=== PATIENT | male | born 1955 ===

== ENCOUNTER 2022-08-01 09:56 | Emergency (ER) | payer BC ==
[2022-08-01] MEDS: Morphine 2 MG/ML SYRINGE IVPUSH PRN (10:36)
[2022-08-01] MEDS: Ondansetron 4 MG/2 ML SDV IVPUSH ONE (10:37)
[2022-08-01] MEDS: Sodium Chloride 0.9% 1,000 ML IV ONE (10:41)
[2022-08-01 12:30] LABS: CHLORIDE,CL 104 mmol/L (98-107); SODIUM,NA 139 mmol/L (136-145)
[2022-08-01 12:31] LABS: ANION GAP 11.2 mmol/L (5-15); ESTIMATED GFR 66 mL/min (>=60)
== END 2022-08-01 14:15 | disposition home or self-care (01) ==
LOC: VM.ED 09:56
DX: S39.012A Strain of muscle, fascia and tendon of lower back, initial encounter (principal); Z88.6 Allergy status to analgesic agent
CPT/HCPCS: 36415; 74176; 80053; 81001; 85025; 96361; 96374; 96375; 99283; 99284-25; J2270; J2405; J7030